=== PATIENT | female | born 1955 | race Caucasian/White ===

== ENCOUNTER 2023-10-12 09:58 | Day surgery (SDC) | payer BC ==
[2023-10-11 12:24] VITALS: BMI 42.5
[2023-10-12] MEDS ORDERED: Scopolamine 1 mg/72 hour Patch ONE (11:14)
[2023-10-12] MEDS ORDERED: Bupivacaine PF 0.5% 30 ML VIAL ONE (12:08)
[2023-10-12] MEDS ORDERED: CEFAZOLIN 2 GM VIAL ONE (12:17)
[2023-10-12] MEDS ORDERED: Midazolam HCl 2 mg/2 ml Vial ONE (12:21)
[2023-10-12] MEDS ORDERED: Fentanyl 250 MCG/5 ML VIAL ONE (12:21)
[2023-10-12] MEDS ORDERED: EPINEPHrine 1 MG/ML AMP ONE (13:10)
[2023-10-12] MEDS ORDERED: SUGAMMADEX SODIUM 200 MG/2 ML VIAL ONE (13:21)
[2023-10-12] MEDS ORDERED: fentaNYL 50 mcg/mL 1 mL Vial ONE (13:26)
[2023-10-12] MEDS ORDERED: Ondansetron PF 4 MG/2 ML Vial ONE (14:20)
== END 2023-10-12 15:40 | disposition home or self-care (01) ==
LOC: CSHSDC 09:58
PROVIDERS: ATTEND Surgery
PROC: 0FT44ZZ Resection of Gallbladder, Percutaneous Endoscopic Approach (ICD-10-PCS; principal; 2023-10-12)
DX: K80.12 Calculus of gallbladder with acute and chronic cholecystitis without obstruction (principal); M19.90 Unspecified osteoarthritis, unspecified site; Z79.891 Long term (current) use of opiate analgesic; Z88.5 Allergy status to narcotic agent; Z96.659 Presence of unspecified artificial knee joint
CPT/HCPCS: 88304; C1889; J0171; J0665; J2250; J2405; J3010